=== PATIENT | female | born 1950 | race Caucasian/White ===

== ENCOUNTER 2018-06-27 08:23 | Emergency (ER) | payer OTHER ==
[~2018-06-27] VITALS: Ht 152.4 cm; Wt 63.5 kg
[2018-06-27 08:42] VITALS: BP_SYST 148
[2018-06-27] MEDS ORDERED: AMOXICILLIN/CLAVULANATE POTASSIUM 875 MG TABLET PO ONE (10:30)
[2018-06-27] MEDS ORDERED: KETOROLAC TROMETHAMINE 60 MG/2 ML VIAL IM ONE (10:30)
[2018-06-27 11:10] VITALS: BP_SYST 160
== END 2018-06-27 11:10 | disposition home or self-care (01) ==
LOC: SED 08:23
DX: R51 Headache (principal); H92.03 Otalgia, bilateral; I10 Essential (primary) hypertension; Z88.1 Allergy status to other antibiotic agents
CPT/HCPCS: 70450; 96372; 99284; J1885